=== PATIENT | female | born 1960 | race Caucasian/White ===

== ENCOUNTER 2021-12-13 07:38 | Outpatient (CLI) | payer BC | END 2021-12-13 07:39 | disposition home or self-care (01) | LOC: ULT 07:38 | PROVIDERS: ATTEND Internal Medicine Gastroenterology | DX: K21.9 Gastro-esophageal reflux disease without esophagitis (principal); K59.09 Other constipation; R10.13 Epigastric pain; I49.9 Cardiac arrhythmia, unspecified; E66.9 Obesity, unspecified; R13.10 Dysphagia, unspecified; Z80.0 Family history of malignant neoplasm of digestive organs | CPT/HCPCS: 76705 ==